=== PATIENT | male | born 1970 | race Caucasian/White ===

== ENCOUNTER 2018-06-01 17:19 | Emergency (ER) | payer SELFPAY ==
[~2018-06-01] VITALS: Ht 193 cm; Wt 104.3 kg
[2018-06-01] MEDS ORDERED: ONDANSETRON HCL 4 MG ORAL DISINTEGRATING TAB PO ONE (18:30)
[2018-06-01] MEDS ORDERED: HYDROCODONE/APAP 10MG-325MG TAB PO ONE (18:30)
== END 2018-06-01 20:14 | disposition home or self-care (01) ==
LOC: ER 17:19
DX: L02.01 Cutaneous abscess of face (principal)
CPT/HCPCS: 99283

== ENCOUNTER 2018-06-03 20:41 | Observation (INO) | payer SELFPAY ==
[~2018-06-03] VITALS: Ht 193 cm; Wt 108.0 kg
[2018-06-03 22:25] LABS: BASOPHILS # (AUTO) 0.1 (0.0-0.1); BASOPHILS % 0.7 % (0.0-1.0); EOSINOPHILS # (AUTO) 0.2 (0.0-0.4); EOSINOPHILS % 2.1 % (0.0-6.0); HEMATOCRIT 50.1 % (38.2-49.6); HEMOGLOBIN 16.7 g/dL (14.0-18.0); LYMPHOCYTES # (AUTO) 1.8 (1.0-3.2); LYMPHOCYTES % 15.3 % (18.0-39.1); MEAN CORPUSCULAR HEMOGLOBIN 29.7 pg (28-32); MEAN CORPUSCULAR HGB CONC 33.3 g/dL (31-35); MEAN CORPUSCULAR VOLUME 89.1 fL (81-99); MONOCYTES # (AUTO) 1.1 (0.2-0.8); MONOCYTES % 9.3 % (4.4-11.3); NEUTROPHILS # (AUTO) 8.3 (2.1-6.9); NEUTROPHILS % 72.1 % (38.7-80.0); PLATELET COUNT 268 x10e3/uL (140-360); RED BLOOD COUNT 5.62 x10e6/uL (4.3-5.7); RED CELL DISTRIBUTION WIDTH 12.4 % (11.7-14.4)
[2018-06-03 22:39] LABS: CREATININE, SERUM 1.39 mg/dL (0.72-1.25)
[2018-06-03] MEDS ORDERED: VANCOMYCIN 1GM/NS 250 ML 250 ML IV SCH (22:45)
[2018-06-03] MEDS ORDERED: IOPAMIDOL 370 MG/ML 200 ML INFUS..BTL INJ ONE (23:01)
[2018-06-03] MEDS ORDERED: SODIUM CHLORIDE 0.9% 50ML 50 ML ONE (23:01)
[2018-06-03] MEDS ORDERED: SODIUM CHLORIDE 0.9% 1000ML 1,000 ML ONE (23:10)
[2018-06-03] MEDS ORDERED: SODIUM CHLORIDE 0.9% 1000ML 1,000 ML IV ONE (23:15)
[2018-06-03] MEDS: ONDANSETRON HCL INJ 2 MG/ML VIAL IV PRN (23:24)
[2018-06-03] MEDS: MORPHINE SULFATE 2 MG/ML SYR IV PRN (23:24)
[2018-06-03] MEDS ORDERED: LIPITOR20 MG PO (23:49)
[2018-06-03] MEDS ORDERED: KEFLEX500 MG PO (23:49)
[2018-06-03] MEDS ORDERED: BACTRIM DS TAB1 EACH PO (23:49)
[2018-06-03] MEDS ORDERED: GLIMEPIRIDE2 MG PO (23:49)
[2018-06-04] VITALS (10 sets, daily range): BP systolic 102–139; BP diastolic 58–87
[2018-06-04] MEDS ORDERED: DEXTROSE 50% SYRINGE 50 ML IV PRN
--- NOTE | 2018-06-04 00:01 | Diagnostic Imaging Report ---
History:Right upper lip swelling for 6 days. Comparison studies: None Technique: Axial images were obtained through the facial region. Coronal and sagittal images reconstructed from the axial data. Intravenous contrast: 100 cc of Isovue 370. Findings: Soft tissues: Moderate right premaxillary and upper lip soft tissue edema with small focal peripheral rim enhancing hypodensity that approximately measures 0.7 x 0.5 x 2 cm in the right paramedian aspect of subcutaneous soft tissues of upper lip. Bones: No fractures or bony abnormalities. Orbits: Globes: Intact. Extra or intraconal abnormalities: None. Paranasal sinuses: Moderate mucosal thickening in left frontal, right maxillary sinus. Mild mucosal thickening in left maxillary and bilateral ethmoid sinuses. IMPRESSION: 1. Moderate right premaxillary and upper lip soft tissue cellulitis, with 0.7 x 0.5 x 2 cm soft tissue abscess. 2. Mild to moderate mucosal inflammatory changes in the paranasal sinuses as detailed above. Signed by: Dr. Zandra Chinchilla M.D. on 06/03/2018 11:58 PM
[2018-06-04] MEDS: VANCOMYCIN 1GM/NS 250 ML 250 ML IV SCH ×2 (00:05→12:00)
[2018-06-04] MEDS: SODIUM CHLORIDE 0.9% 1000ML 1,000 ML IV SCH ×4 (00:33→23:50)
[2018-06-04] MEDS: MORPHINE SULFATE 2 MG/ML SYR IV PRN ×5 (04:15→23:50)
[2018-06-04] MEDS: ONDANSETRON HCL INJ 2 MG/ML VIAL IV PRN ×3 (04:51→23:50)
[2018-06-04] MEDS: INSULIN REGULAR, HUMAN 100 UNIT/1 ML 3ML VIAL SQ SCH ×4 (07:30→20:25)
[2018-06-04] MEDS: PIPER-TAZ 3.375 GM 50 ML IV SCH ×3 (11:48→23:50)
[2018-06-04] MEDS ORDERED: INFLUENZA VIRUS VAC SPLIT INJ 0.5 ML SYR IM ONE (12:45)
--- NOTE | 2018-06-04 14:35 | History and Physical ---
This 48-year-old male has diabetes mellitus. He was admitted to the emergency room with complaint of right upper lip painful swelling and redness. HISTORY OF PRESENT ILLNESS: Mr. Jerrell Katz is a 48-year-old male patient with type-2 diabetes mellitus but noncompliant with his treatment. He was seen as outpatient with right upper lip cellulitis with possible abscess. Outpatient I and D were attempted, but the patient was in severe pain. The patient could not tolerate the procedure. The patient came to the ER. The patient was evaluated in the ER, and the patient was discharged home with oral antibiotics. The patient got worse and did not get any better. He came back, and the patient has been readmitted. In the emergency room, a face CT was done. ALLERGIES: NO KNOWN DRUG ALLERGIES. PAST MEDICAL HISTORY 1. Hep C. 2. Diabetes mellitus. 3. Hypertension. SOCIAL HISTORY: The patient is a smoker. Denies alcohol. REVIEW OF SYSTEMS: As per history of present illness. PHYSICAL EXAMINATION VITAL SIGNS: Temperature 98, pulse rate 60, blood pressure 118/74, respirations 16. HEENT: Right upper lip severe swelling, tenderness and redness. Cervical adenopathy is present. LUNGS: Bilateral equal air entry. No rales. No rhonchi. HEART: S1 and S2, regular. No murmur. No gallop. ABDOMEN: Soft. Bowel sounds are present. NEUROLOGIC: No focal neurological deficit. ADMISSION IMPRESSION AND DIAGNOSES 1. Right facial cellulitis with abscess. 2. Diabetes mellitus. 3. Hypertension. The patient will be admitted with the above diagnoses with abscess of the abscess. Will obtain surgery consult and ID consult. Treat the patient with vancomycin and Zosyn. Will treat with sliding-scale coverage. The patient will get IV analgesics. Job#: [id number]
--- NOTE | 2018-06-04 14:56 | Consultation ---
DATE OF CONSULTATION: June 04, 2018 INFECTIOUS DISEASE CONSULTATION ATTENDING PHYSICIAN: Dr. Donnie Rosenberg. REASON FOR CONSULTATION: Abscess. Thank you, Dr. Rosenberg, for asking me to see this patient. HISTORY: Patient is a 48-year-old man referred for abscess. He was admitted through the emergency department with cellulitis of the upper lip and a single abscess of the face. He presented to the emergency department with progressive right upper lip painful swelling for several days, which worsened after he tried to palpate it. He was evaluated in the emergency department a few days ago and discharged on oral antibiotics. However, he went back to the PCP on the day of admission because his condition deteriorated and was sent back to the emergency department. In the emergency department, he was noted to have a temperature of 98.4 degrees Fahrenheit, pulse 68, respiratory rate 17, blood pressure 122/85 and oxygen saturation 97% on room air. Initial laboratory studies showed blood leukocyte count of 11,480 and blood glucose [address] CT scan of the face showed moderate right premaxillary and upper lip soft-tissue cellulitis and abscess. PAST MEDICAL HISTORY: Diabetes mellitus type 2, hyperlipidemia and pancreatitis. PAST SURGICAL HISTORY: Right inguinal hernia repair. ALLERGIES TO MEDICATION: NO KNOWN DRUG ALLERGIES. MEDICATIONS: The current antibiotics are Zosyn 3.375 grams IV piggyback q.6 hours and vancomycin 1 gram IV piggyback q.12 hours. IMMUNIZATIONS: He has not received influenza vaccine. FAMILY HISTORY: Noncontributory. SOCIAL HISTORY: He smokes 1 to 2 packs of cigarettes a day. Also he smokes a marijuana occasionally. He denies alcohol use. REVIEW OF SYSTEMS: As per history of present illness. He reports improvement and decreased swelling since admission and management. PHYSICAL EXAMINATION: GENERAL: No acute distress. VITAL SIGNS: T-max 98.7, pulse 51, respiratory rate 16, blood pressure 118/74. Weight 229 pounds. HEENT: Normocephalic. There is no icterus or injection of conjunctivae. There is no ear or nasal discharge. There is swelling, induration, erythema and tenderness of the right upper lip. The is no drainage at the moment. Moist oral mucosa. No pharyngeal erythema or exudate. NECK: Supple. No lymphadenopathy or meningismus. LUNGS: Clear to auscultation bilaterally. HEART: Normal S1 and S2. ABDOMEN: Normal bowel sounds in all quadrants. Soft and nontender. EXTREMITIES: There is no edema, clubbing or cyanosis. Dorsalis pedis and posterior tibial pulses are palpable. SKIN: As per HEENT. [employer]: Awake, alert and oriented to person, place and time. There is normal sensation on monofilament examination of the feet. Nonfocal. LABORATORY DATA: WBC 11,480, hemoglobin 16.7, platelet 268,000, neutrophil 72.1, lymph 15.3, mono 9.3, eosinophil 2.1, basophil 0.7. BUN 18, creatinine 1.3, blood glucose 195. Blood culture was collected for yet unknown indication. IMPRESSION: 1. Right upper lip cellulitis and abscess which failed outpatient oral antibiotics. 2. Tobacco use disorder. 3. Diabetes mellitus type 2. PLAN: 1. Check vancomycin trough with the 4th dose. 2. Await surgical consult. 3. Administer influenza vaccination. 4. Smoking cessation counseling was provided to the patient. Job#: [id number] EV
[2018-06-04] MEDS: GLIMEPIRIDE 2 MG TAB PO SCH (17:51)
[2018-06-05] VITALS: BP 147/86
[2018-06-05] MEDS: VANCOMYCIN 1GM/NS 250 ML 250 ML IV SCH ×2 (00:48→12:00)
[2018-06-05 04:00] VITALS: BP 138/92
[2018-06-05 05:01] LABS: BASOPHILS # (AUTO) 0.1 (0.0-0.1); BASOPHILS % 0.7 % (0.0-1.0); EOSINOPHILS # (AUTO) 0.2 (0.0-0.4); EOSINOPHILS % 2.4 % (0.0-6.0); HEMATOCRIT 43.4 % (38.2-49.6); HEMOGLOBIN 14.3 g/dL (14.0-18.0); LYMPHOCYTES # (AUTO) 1.5 (1.0-3.2); LYMPHOCYTES % 15.3 % (18.0-39.1); MEAN CORPUSCULAR HEMOGLOBIN 29.1 pg (28-32); MEAN CORPUSCULAR HGB CONC 32.9 g/dL (31-35); MEAN CORPUSCULAR VOLUME 88.2 fL (81-99); MONOCYTES % 10.1 % (4.4-11.3); NEUTROPHILS % 71.1 % (38.7-80.0); PLATELET COUNT 221 x10e3/uL (140-360); RED BLOOD COUNT 4.92 x10e6/uL (4.3-5.7); RED CELL DISTRIBUTION WIDTH 12.4 % (11.7-14.4)
[2018-06-05] MEDS: PIPER-TAZ 3.375 GM 50 ML IV SCH ×2 (05:30→12:00)
[2018-06-05] MEDS: ONDANSETRON HCL INJ 2 MG/ML VIAL IV PRN (05:31)
[2018-06-05] MEDS: MORPHINE SULFATE 2 MG/ML SYR IV PRN (05:31)
[2018-06-05 05:33] LABS: ALANINE AMINOTRANSFERASE 19 IU/L (0-55); ALBUMIN 3.1 g/dL (3.5-5.0); ALBUMIN/GLOBULIN RATIO 0.9 (0.8-2.0); ALKALINE PHOSPHATASE 97 IU/L (40-150); ANION GAP 13.3 mmol/L (8-16); BLOOD UREA NITROGEN 13 mg/dL (7-26); BUN/CREATININE RATIO 11 (6-25); CALCIUM 9.3 mg/dL (8.4-10.2); CARBON DIOXIDE 23 mmol/L (22-29); CHLORIDE 107 mmol/L (98-107); CREATININE, SERUM 1.14 mg/dL (0.72-1.25); EST GLOMERULAR FILTRATION RATE > 60 ML/MIN (60-); GLUCOSE 98 mg/dL (74-118); POTASSIUM 4.3 mmol/L (3.5-5.1); SODIUM 139 mmol/L (136-145)
[2018-06-05] MEDS: INSULIN REGULAR, HUMAN 100 UNIT/1 ML 3ML VIAL SQ SCH ×2 (07:30→11:30)
[2018-06-05 08:26] VITALS: BP 132/65
[2018-06-05] MEDS: SODIUM CHLORIDE 0.9% 1000ML 1,000 ML IV SCH (08:40)
[2018-06-05] MEDS: GLIMEPIRIDE 2 MG TAB PO SCH (08:40)
[2018-06-05 09:00] VITALS: BP 132/65
[2018-06-05] MEDS ORDERED: ATORVASTATIN 20 MG TAB PO SCH (09:00)
[2018-06-05] MEDS ORDERED: MORPHINE SULFATE INJ 4 MG/ML INJ IV PRN (09:30)
[2018-06-05] MEDS ORDERED: MINOCYCLINE HCL50 MG PO (10:52)
[2018-06-05 11:56] VITALS: BP 118/64
--- NOTE | 2018-06-05 15:00 | Discharge Summary ---
He is a 48-year-old male patient, presented to the emergency room with complaint of right-sided upper lip abscess cellulitis in a diabetic patient. ADMITTING IMPRESSION AND DIAGNOSES 1. Right upper lip cellulitis abscess. 2. Diabetes mellitus. 3. History of recent pancreatitis. HOSPITAL COURSE SUMMARY: Patient was admitted with the above diagnoses. Patient was treated with IV antibiotics, vancomycin and Zosyn. The patient is ID consultation was done. Patient had a blood culture that was negative for any growth. Mid fat decompression of the wound was done and some pus was drained. Now, upon stabilization, patient will be discharged home on minocycline 100 mg twice a day for 10 days and will be followed up as outpatient. Patient was advised to follow up with me as outpatient. RINA STOVER MD Job#: [id number] ZENA
[2018-06-05] MEDS ORDERED: GLIMEPIRIDE 2 MG TAB PO SCH (17:00)
[2018-06-06] MEDS ORDERED: ATORVASTATIN 40 MG TAB PO SCH (09:00)
== END 2018-06-05 12:35 | disposition home or self-care (01) ==
LOC: ER 20:41 → ERHOLD 23:09 → IMCU 06-04 00:07
PROVIDERS: ADMIT Internal Medicine; ATTEND Internal Medicine
DX: K12.2 Cellulitis and abscess of mouth (principal); F17.210 Nicotine dependence, cigarettes, uncomplicated; E11.9 Type 2 diabetes mellitus without complications; Z91.19 Patient's noncompliance with other medical treatment and regimen; Z86.19 Personal history of other infectious and parasitic diseases; I10 Essential (primary) hypertension; E78.5 Hyperlipidemia, unspecified; Z79.4 Long term (current) use of insulin
CPT/HCPCS: 36415 ×3; 70487; 80053 ×2; 82948 ×2; 85025 ×2; 87040; 99284; G0378 ×3; J2270 ×3; J2405 ×3; J2543 ×2; J3370 ×3; J7030 ×3; Q9967

== ENCOUNTER 2020-01-14 15:59 | Inpatient (IN) | payer OTHER ==
[~2020-01-14] VITALS: Ht 193 cm; Wt 106.6 kg
[~2020-01-14 15:59] MED LIST: BACTRIM DS TAB1 EACH PO; GLIMEPIRIDE2 MG PO; KEFLEX500 MG PO; LIPITOR20 MG PO; MINOCYCLINE HCL50 MG PO
--- OUTSIDE RECORDS SUMMARY | 2020-01-14 16:03 | XMS REPORT | Clinical Summary ---
Author Author [facility] Organization [facility] Address Unknown Phone Unavailable Care Team Providers Care Ambulance Assistant Name Role Phone Alfredo Sharpe MD PCP Jackie Stanton MD PCP Allergies No Known Allergies Medications End Date Status Medication Sig Dispensed Refills Start Date Active atorvastatin (LIPITOR) 80 Take 1 tablet 30 tablet 3 mg tabletIndications: by mouth at 8 Hypertriglyceridemia bedtime nightly. Active lancetsIndications: Type Use 2 times 100 Each 1 0 2 diabetes mellitus daily as 8 without complication, directed. without long-term current use of insulin Active pen needle, diabetic Inject under 1 Box 3 04/09 (TRUEPLUS PEN NEEDLE) 31 the skin 5 8 gauge x 3/16" times daily. needlesIndications: Type 2 diabetes mellitus without complication, without long-term current use of insulin 02/05/2020 Active insulin NPH 100 unit/mL Inject 10 30 mL 3 injectionIndications: Units under 9 Type 2 diabetes mellitus the skin 2 without complication, times daily without long-term current (with meals) use of insulin for 360 days Take with breakfast and dinner.. Active gemfibrozil (LOPID) 600 Take 1 tablet 60 tablet 3 mg tabletIndications: by mouth 2 9 Hypertriglyceridemia times daily (before meals). 02/05/2020 Active insulin REGULAR 100 Inject 8 30 mL 3 unit/mL Units under 9 injectionIndications: the skin Type 2 diabetes mellitus before meals without complication, for 360 days. without long-term current use of insulin Active INSULIN SYRINGE 1mL Use to inject 1 Box 3 06201 30GX5/16" (MONOJECT medication 5 9 ULTRACOMFORT INSULIN SYR times daily. 1ML 30GX5/16") Use a new syringe-needleIndications syringe each : Type 2 diabetes time. mellitus without complication, without long-term current use of insulin Active dexlansoprazole Take 1 180 capsule 1 (DEXILANT) 30 mg delayed capsule by 9 release mouth 2 times capsuleIndications: daily (before Gastritis without meals). bleeding, unspecified chronicity, unspecified gastritis type Active lisinopril (ZESTRIL) 2.5 Take 1 tablet 90 tablet 0 mg tabletIndications: by mouth 9 Type 2 diabetes mellitus daily. not at goal 02/10/2019 Discontinued (Therapy comple eliseo) levETIRAcetam (KEPPRA) Take 1 tablet 30 tablet 2 0 500 mg tabletIndications: by mouth 2 4 Headache(784.0) times daily. 02/10/2019 Discontinued (Reorder) atorvastatin (LIPITOR) 80 Take 1 tablet 30 tablet 3 mg tabletIndications: by mouth at 8 Hypertriglyceridemia bedtime nightly. 02/10/2019 Discontinued (Reorder) gemfibrozil (LOPID) 600 Take 1 tablet 60 tablet 3 mg tabletIndications: by mouth 2 8 Hypertriglyceridemia times daily (before meals). 02/10/2019 Discontinued (Reorder) insulin NPH 100 unit/mL Inject 10 3 Month 3 injectionIndications: Units under Supply 8 Type 2 diabetes mellitus the skin 2 without complication, times daily without long-term current (with meals) use of insulin Take with breakfast and dinner.. 02/10/2019 Discontinued (Reorder) insulin REGULAR 100 Inject 8 3 Month 3 unit/mL Units under Supply 8 injectionIndications: the skin Type 2 diabetes mellitus before meals. without complication, without long-term current use of insulin 02/10/2019 Discontinued INSULIN SYRINGE 1mL Use to inject 1 Box 3 04/09 30GX5/16" (MONOJECT medication 5 8 ULTRACOMFORT INSULIN SYR times daily. 1ML 30GX5/16") Use a new syringe-needleIndications syringe each : Type 2 diabetes time. mellitus without complication, without long-term current use of insulin 02/20/2019 Discontinued (Other) atorvastatin (LIPITOR) 80 Take 1 tablet 30 tablet 3 mg tabletIndications: by mouth at 9 Hypertriglyceridemia bedtime nightly. 04/29/2019 Discontinued (Reorder) dexlansoprazole Take 1 90 capsule 0 (DEXILANT) 30 mg delayed capsule by 9 release mouth daily. capsuleIndications: Gastritis without bleeding, unspecified chronicity, unspecified gastritis type 10/26/2019 tropicamide (MYDRIACYL) Instill 1 15 mL 0 0.5 % ophthalmic Drop in each 9 solutionIndications: eye once as Examination of eyes and needed for up vision to 1 dose (for poor retina scan image). Active Problems Problem Noted Date Type 2 diabetes mellitus 05/06/2018 LUQ pain 03/09/2018 Hypertriglyceridemia 03/09/2018 Encounters Care Team Description Date Type Specialty Ivon Sosa Physician 05/04/2019 E-Consult Endocrinology Jackie Stanton MD Hypertriglyceridemia (Primary Dx); Gastritis without bleeding, unspecified chronicity, unspecified gastritis type; Type 2 diabetes mellitus not at goal; Screen for colon cancer; Examination of eyes and vision; Dietary counseling for Above / Below Normal BMI; Exercise counseling for Above Normal BMI Only! 04/29/2019 Office Visit Family Practice 04/19/2019 Ancillary Radiology Procedure Nicolle Fritz MD Neck pain on left side (Primary Dx) 02/24/2019 Emergency Emergency Medicine Gab Carpenter MD Chronic pancreatitis, unspecified pancre atitis type (Primary Dx) 02/20/2019 Orders Only [facility] Gab Carpenter MD Bronchitis, not specified as acute or ch ronic 02/10/2019 Ancillary Radiology Procedure Gab Carpenter MD Dental caries (Primary Dx); Type 2 diabetes mellitus without complication, without long-term current use of insulin; Hypertriglyceridemia; Encounter to establish care; Chronic pancreatitis, unspecified pancreatitis type; Right foot pain; Elevated blood pressure reading without diagnosis of hypertension; Colon cancer screening; Bronchitis, not specified as acute or chronic; Gastritis without bleeding, unspecified chronicity, unspecified gastritis type 02/10/2019 Office Visit Family Practice after 01/13/2019 Immunizations Name Administration Dates Next Due Influenza Vaccine 09/17/2010 PNEUMOCOCCAL 23-VALPS 05/06/2018 (Deferred: Patie nt Refused) VACCINE 25 MCG/0.5 ML INJECTION Family History Medical History Relation Name Comments Diabetes Father Heart Maternal Grandmother Relation Name Status Comments Father Other Maternal Grandmother Alive Mother Alive Social History Date Tobacco Use Types Packs/Day Years Used Current Every Day Smoker Cigarettes 1 35 Smokeless Tobacco: Never Used Drinks/Week oz/Week Comments Alcohol Use 0 Cans of beer 0.0 Not Currently Food Insecurity Answer Date Recorded Within the past 12 months, you worried that your Never casey e 11/04/2018 food would run out before you got money to buy more. Within the past 12 months, the food you bought Never true 11/04/2018 just didn't last and you didn't have mo raina to get more. Sex Assigned at Date Recorded Not on file Industry Job Start Date Occupation Not on file Not on file Not on file Travel End Travel History Travel Start No recent travel history available. Last Filed Vital Signs Reading Time Taken Comments Vital Sign 137/86 04/29/2019 8:14 AM CDT Blood Pressure 63 04/29/2019 8:14 AM CDT Pulse 37 C (98.6 F) 04/29/2019 8:14 AM CDT Temperature 18 04/29/2019 8:14 AM CDT Respiratory Rate 96% 02/24/2019 11:11 AM CDT Oxygen Saturation - - Inhaled Oxygen Concentration 104.7 kg (230 lb 12.8 oz) 04/29/2019 8:14 AM CDT Weight 189.5 cm (6' 2.61") 04/29/2019 8:14 AM CDT Height 29.15 04/29/2019 8:14 AM CDT Body Mass Index Plan of Treatment Health Maintenance Due Date Last Done Comments DM Retinal Exam (Yearly) 1986 Colorectal Cancer Scrn 2018 Annual (FIT/FOBT) Age 50 to 75 DM Foot Exam (Yearly) 02/11/2020 02/10/2019 DM HGBA1C (Yearly) 02/11/2020 02/10/2019, 018, 05/05/2018 IMM Influenza Seasonal 06/08/2020Jun to November (>/= 19 yrs) Goals Goal Patient Associated Recent Progress Patient-Stat Aut hor Goal Type Problems ed? Eat Healthy Lifestyle No Antonino Aguilar LVN Increase Physical Activity Lifestyle No Antonino Kulkarni LVN Take medications as prescribed Self No Jackie Stanton management MD Home Glucose Monitoring Self No Jackie Stanton management MD Exercise Regularly Self No Jackie Stanton management MD Procedures Comments Procedure Name Priority Date/Time Associated Diag nosis HEMOCCULT KIT FOR Routine 04/29/2019 Screen for c olon cancer SPECIMEN COLLECTION AT 8:[address] ABDOMEN AND PELVIS Routine 04/19/2019 Chronic pancreatitis, CONTRAST 2:52 PM CDT unspecified pancrea titis type CREATININE Routine 04/15/2019 Chronic pancrea titis, 11:14 AM CDT unspecified pancreatitis type GLUCOSE POC Routine 02/24/2019 11:15 AM CDT XRAY CHEST 2 VIEWS Routine 02/10/2019 Bronchitis, not specified 3:10 PM CDT as acute or chronic XRAY FOOT 3 VIEWS MIN Routine 02/10/2019 Right fo ot pain 3:10 PM CDT LIPASE Routine 02/10/2019 Chronic pancrea titis, 3:01 PM CDT unspecified pancreatitis type AMYLASE Routine 02/10/2019 Chronic pancrea titis, 3:01 PM CDT unspecified pancreatitis type CBC Routine 02/10/2019 Hypertriglyceri demia 3:01 PM CDT Encounter to establish care Chronic pancreatitis, unspecified pancreatitis type SYPHILIS SCREEN FOR Routine 02/10/2019 Encounter to establish INFECTION 3:01 PM CDT care HEPATITIS PANEL Routine 02/10/2019 Encounter to e stablish 3:01 PM CDT care LIPID PROFILE Routine 02/10/2019 Hypertriglyceri demia 3:01 PM CDT Encounter to establish care CBC/DIFF Routine 02/10/2019 Hypertriglyceri demia 3:01 PM CDT Encounter to establish care Chronic pancreatitis, unspecified pancreatitis type THYROID STIMULATING Routine 02/10/2019 Encounter to establish HORMONE (TSH) 3:01 PM CDT care COMPREHENSIVE METABOLIC Routine 02/10/2019 Type 2 diabetes mellitus PANEL 3:01 PM CDT without complicatio n, without long-term current use of insulin Hypertriglyceridemia Encounter to establish care Elevated blood pressure reading without diagnosis of hypertension MICROALBUMIN / CREATININE Routine 02/10/2019 Type 2 diabetes mellitus URINE RATIO 3:00 PM CDT without complicatio n, without long-term current use of insulin HIV-1/HIV-2 ROUTINE Routine 02/10/2019 Encounter to establish SCREENING 3:00 PM CDT care HEMOGLOBIN A1C Routine 02/10/2019 Type 2 diabetes mellitus 2:59 PM CDT without complication, without long-term current use of insulin DIABETIC FOOT EXAM Routine 02/10/2019 Type 2 diab etes mellitus 1:47 PM CDT without complication, without long-term current use of insulin after 01/13/2019 Results * CT ABDOMEN AND PELVIS CONTRAST (04/19/2019 2:52 PM CDT) Specimen Impressions Performed At IMPRESSION: SMS No acute inflammatory process in the ab domen/pelvis. Dictated By: Bacilio España MD, 04/08 3:50 PM I have reviewed the study and agree wit h the findings in this report. Signed By: Neil Castillo MD, 04/19/2019 4:21 PM Narrative Performed At EXAM: CT Abdomen and Pelvis WITH contrast SMS INDICATION: Abd pain, acute, generalize d COMPARISON: Abdominal ultrasound 018, CT dated 09/11/2010 TECHNIQUE: Abdomen and pelvis were scan alejandro utilizing a multidetector helical scanner from the lung base to t he pubic symphysis after administration of IV contrast. Coronal and sagittal reformations were obtained. Routine protocol was performe d. Scan was performed when during portal venous phase. IV CONTRAST: 150 mL of Omnipaque 300 ORAL CONTRAST: None. COMPLICATIONS: None RADIATION DOSE: Total DLP: 886.50 mGy*cm Estimated effective dose: (DLP x 0.015 x size factor) mSv CTDIvol has been reviewed. It is below the limits set by the Radiation Protocol Committee (RPC). FINDINGS: LINES and TUBES: None. LOWER THORAX: Unremarkable HEPATOBILIARY: Mild hepatomegaly measur ing approximately 17 cm in craniocaudal dimension. Stable hypodens e well-circumscribed lesion (series 2, image 18) centered in hepati c segment I measuring approximately 6 mm in diameter too smal l to characterize, likely a cyst. No hepatic mass. No biliary ductal dila tion. GALLBLADDER: No radio-opaque stones or sludge. No wall thickening. SPLEEN: No splenomegaly. PANCREAS: No focal masses or ductal dil atation. ADRENALS: No adrenal nodules KIDNEYS/URETERS: Kidneys enhance symmet rically. No hydronephrosis. No cystic or solid mass lesions. Focal lef t midpole cortical thinning/scarring. No stones. GI TRACT: No abnormal distention, wall thickening, or evidence of bowel obstruction. Appendix is normal. PELVIC ORGANS/BLADDER: Bladder is unrem arkable. Scattered prostatic calcifications. LYMPH NODES: No lymphadenopathy. VESSELS: Mild aortoiliac atheroscleroti c disease. PERITONEUM / RETROPERITONEUM: No free a ir or fluid. BONES: L5-S1 degenerative changes. Stab le scattered subcentimeter sclerotic foci since 2010, representing bone islands, for example in right iliac on series 2, image 70. SOFT TISSUES: Unremarkable.. Procedure Note Interface, Rad/Mammog In - 04/19/2019 4:26 PM CDT EXAM: CT Abdomen and Pelvis WITH contrast INDICATION: Abd pain, acute, generalized COMPARISON: Abdominal ultrasound 05/06/2018, CT dated 09/11/2010 TECHNIQUE: Abdomen and pelvis were scanned utilizing a multidetector helical scanner from the lung base to the pubic symphysis after administration of IV contrast. Coronal and sagittal reformations were obtained. Routine protocol was performed. Scan was performed when during portal venous phase. IV CONTRAST: 150 mL of Omnipaque 300 ORAL CONTRAST: None. COMPLICATIONS: None RADIATION DOSE: Total DLP: 886.50 mGy*cm Estimated effective dose: (DLP x 0.015 x size factor) mSv CTDIvol has been reviewed. It is below the limits set by the Radiation Protocol Committee (RPC). FINDINGS: LINES and TUBES: None. LOWER THORAX: Unremarkable HEPATOBILIARY: Mild hepatomegaly measuring approximately 17 cm in craniocaudal dimension. Stable hypodense well-circumscribed lesion (series 2, image 18) centered in hepatic segment I measuring approximately 6 mm in diameter too small to characterize, likely a cyst. No hepatic mass. No biliary ductal dilation. GALLBLADDER: No radio-opaque stones or sludge. No wall thickening. SPLEEN: No splenomegaly. PANCREAS: No focal masses or ductal dilatation. ADRENALS: No adrenal nodules KIDNEYS/URETERS: Kidneys enhance symmetrically. No hydronephrosis. No cystic or solid mass lesions. Focal left midpole cortical thinning/scarring. No stones. GI TRACT: No abnormal distention, wall thickening, or evidence of bowel obstruction. Appendix is normal. PELVIC ORGANS/BLADDER: Bladder is unremarkable. Scattered prostatic calcifications. LYMPH NODES: No lymphadenopathy. VESSELS: Mild aortoiliac atherosclerotic disease. PERITONEUM / RETROPERITONEUM: No free air or fluid. BONES: L5-S1 degenerative changes. Stable scattered subcentimeter sclerotic foci since 2010, representing bone islands, for example in right iliac on series 2, image 70. SOFT TISSUES: Unremarkable.. IMPRESSION IMPRESSION: No acute inflammatory process in the abdomen/pelvis. Dictated By: Bacilio España MD, 04/19/2019 3:50 PM I have reviewed the study and agree with the findings in this report. Signed By: Neil Castillo MD, 04/19/2019 4:21 PM Performing Organization Address [facility] one Number [facility] * Creatinine (04/15/2019 11:14 AM CDT) Creatinine 1.1 0.7 - 1.3 mg/dL [facility] GFR, Estimated 71 (L) >=90 mL/min/1.73 m2 [facility] Specimen Blood Performing Organization Address [facility] one Number [facility] [address] [place] [address] [phone] * POCT GLUCOSE POC docked device (02/24/2019 11:15 AM CDT) Glucose POC 241 (H) 74 - 106 mg/dL [facility] Specimen Blood Performing Organization Address [facility] one Number [facility] [address] [place] [address] * XRAY CHEST 2 VIEWS (02/10/2019 3:10 PM CDT) Specimen Impressions Performed At IMPRESSION: [facility] No acute thoracic abnormality. Dictated By: Allyssa Whitt DO, 9 3:44 PM I have reviewed the study and agree wit h the findings in this report. Signed By: Mir Gracia MD, 02/11/2019 9 :20 AM Narrative Performed At EXAMINATION: XRAY CHEST 2 VIEWS SMS INDICATION: COPD and previously abnorma l CXR COMPARISON: Chest X-ray, 05/05/18 FINDINGS: TUBES and LINES: None. LUNGS: Lungs are well inflated. Gilmar gs are clear. There is no evidence of pneumonia or pulmonary indy a. PLEURA: No pleural effusion or pneumo thorax. HEART AND MEDIASTINUM: The cardiomedi astinal silhouette is unremarkable. BONES AND SOFT TISSUES: No acute osse ous lesion. Soft tissues are unremarkable. UPPER ABDOMEN: No free air under the di aphragm. Procedure Note [facility] Rad/Mammog In - 02/11/2019 9:25 AM CDT EXAMINATION: XRAY CHEST 2 VIEWS INDICATION: COPD and previously abnormal CXR COMPARISON: Chest X-ray, 05/05/18 FINDINGS: TUBES and LINES: None. LUNGS: Lungs are well inflated. Lungs are clear. There is no evidence of pneumonia or pulmonary edema. PLEURA: No pleural effusion or pneumothorax. HEART AND MEDIASTINUM: The cardiomediastinal silhouette is unremarkable. BONES AND SOFT TISSUES: No acute osseous lesion. Soft tissues are unremarkable. UPPER ABDOMEN: No free air under the diaphragm. IMPRESSION IMPRESSION: No acute thoracic abnormality. Dictated By: Allyssa Whitt DO, 02/10/2019 3:44 PM I have reviewed the study and agree with the findings in this report. Signed By: Mir Gracia MD, 02/11/2019 9:20 AM Performing Organization Address City/State/Zipcode Ph one Number SMS * XRAY FOOT 3 VIEWS MIN (02/10/2019 3:10 PM CDT) Specimen Impressions Performed At IMPRESSION: [facility] No acute radiographic abnormality. Dictated By: Mike Rendon MD, 02/10 3:06 PM I have reviewed the study and agree wit h the findings in this report. Signed By: Artemio Vicente MD, 02/10/2019 3:18 PM Narrative Performed At EXAM: Right foot radiograph, 3 views SMS HISTORY: right foot pain COMPARISON: None DISCUSSION: No acute displaced fracture. The joint spaces are well-maintained. Dorsal calcaneal spurring. Procedure Note [facility] Rad/Mammog In - 02/10/2019 3:23 PM CDT EXAM: Right foot radiograph, 3 views HISTORY: right foot pain COMPARISON: None DISCUSSION: No acute displaced fracture. The joint spaces are well-maintained. Dorsal calcaneal spurring. IMPRESSION IMPRESSION: No acute radiographic abnormality. Dictated By: Mike Rendon MD, 02/10/2019 3:06 PM I have reviewed the study and agree with the findings in this report. Signed By: Artemio Vicente MD, 02/10/2019 3:18 PM Performing Organization Address City/State/Zipcode Ph one Number SMS * CBC/Diff (02/10/2019 3:01 PM CDT) WBC 10.9 4.5 - 12.0 K/uL [facility] RBC 5.85 4.60 - 6.20 M/uL [facility] Hemoglobin 17.2 14.0 - 18.0 g/dL [facility] Hematocrit 52.9 40.0 - 54.0 % [facility] MCV 90.4 82.0 - 92.0 fL [facility] MCH 29.4 27.0 - 31.0 pg [facility] MCHC 32.5 32.0 - 36.0 g/dL [facility] RDW 43.6 35.1 - 43.9 fL [facility] Platelet 245 150 - 400 K/uL [facility] Mean Platelet 11.0 9.4 - 12.4 fL [facility] Volume [facility] Percent NRBC 0.0 % [facility] Neutrophil 70.3 (H) 34.0 - 67.9 % [facility] Lymphs 17.2 (L) 21.8 - 50.0 % [facility] Monocytes 9.3 5.3 - 12.0 % [facility] Eos 1.7 0.8 - 5.0 % [facility] Basos 0.7 0.2 - 1.2 % [facility] Immature 0.8 (H) 0.0 - 0.5 % [facility] Granulocytes [facility] Neutrophils 7.66 (H) 1.78 - 5.36 K/uL [facility] (Absolute) [facility] Lymphs 1.88 1.32 - 3.57 K/uL [facility] (Absolute) [facility] Monocytes(Absol 1.01 (H) 0.30 - 0.82 K/uL [facility] missy) LAB[facility] Eos (Absolute) 0.19 0.04 - 0.54 K/uL [facility] Baso (Absolute) 0.08 0.01 - 0.08 K/uL [facility] Immature Grans 0.09 (H) 0.00 - 0.03 K/uL [facility] (Abs) [facility] Absolute NRBC 0.00 K/uL [facility] Specimen Blood Performing Organization Address [facility] Ph one Number [facility] [address] [place] [address] * Syphilis Screen for Infection (02/10/2019 3:01 PM CDT) Pathologist [facility] TPA Negative Negative [facility] Final Report Negative Negative [facility] Specimen Blood Narrative Performed At Should be ordered in patients where their syphilis st atus is unknown and you [facility] want to test if the patient has Syphili s. If the test is positive, the lab will automatically reflex test for RPR (Non- treponemal test) titer, and if the RPR is negative, the lab will automatically test for TP-PA ( Treponemal Test) Performing Organization Address [facility] Ph one Number [facility] [address] [place] [address] [phone] * Comprehensive Metabolic Panel (02/10/2019 3:01 PM CDT) Pathologist [facility] Sodium 134 (L) 136 - 145 mmol/L [facility] Potassium 4.5 3.5 - 5.1 mmol/L [facility] Chloride 97 (L) 98 - 107 mmol/L [facility] CO2 26 21 - 31 mmol/L [facility] Glucose 322 (H) 70 - 110 mg/dL [facility] Calcium 10.2 8.6 - 10.3 mg/dL [facility] Urea Nitrogen 13.0 7.0 - 25.0 mg/dL [facility] Creatinine 0.9 0.7 - 1.3 mg/dL [facility] Alkaline 115 (H) 34 - 104 U/L [facility] Phosphatase [facility] ALT 19 7 - 52 U/L [facility] AST 16 13 - 39 U/L [facility] Bilirubin, 0.4 0.2 - 1.2 mg/dL [facility] Total [facility] Total Protein 7.0 6.0 - 8.3 g/dL [facility] GFR, Estimated >60 mL/min/1.73 m2 [facility] Albumin 4.5 4.2 - 5.5 g/dL [facility] Anion Gap 11 5 - 16 mmol/L [facility] Specimen Blood Performing Organization Address [facility] one Number [facility] [address] [place] [address] [phone] * TSH (02/10/2019 3:01 PM CDT) TSH 2.79 0.57 - 3.74 uIU/mL [facility] Specimen Blood Performing Organization Address [facility] one Number [facility] [address] [place] [address] * Lipid Profile (02/10/2019 3:01 PM CDT) Triglyceride 1,489 (H) <150 mg/dL [facility] Comment: [facility] Normal: < 150.0 mg/dL Borderline: 150-199 mg/dL High: 200-499 mg/dL Very High: >= 500 mg/dL Cholesterol 260.0 (H) <=200.0 mg/dL [facility] Comment: [facility] Desirable: < 200.0 mg/dL Borderline: 200 - 240 mg/dL High Risk: > 240 mg/dL HDL 31.0 See Reference Range [facility] Comment: Narrative. mg/dL LAB[facility]ATORY Increased CHD Risk: < 40.0 mg/dL Decreased CHD Risk: > 60 mg/dL LDL -69 <100 mg/dL [facility] Comment: [facility] Optimal: < 100.0 mg/dL Near Optimal: 120-129 mg/dL Borderline: 130-159 mg/dL High: 160-189 mg/dL Very High: >=190 mg/dL Specimen Blood Narrative Performed At Patient is not fasting. For a triglyceride result gre ater than 440 mg/dL, [facility] consider re-testing when the patient is in a fasting state. Performing Organization Address [facility] one Number [facility] [address] [place] [address] [phone] * Lipase (02/10/2019 3:01 PM CDT) Lipase 134 (H) 11 - 82 U/L [facility] Specimen Blood Performing Organization Address [facility] one Number [facility] [address] [place] [address] * Hepatitis Panel (02/10/2019 3:01 PM CDT) Hep C Vir Ab Negative Negative [facility] LABORATORY Hep B Surface Negative Negative [facility] Ag LABORATORY Hep A Vir Ab Negative Negative [facility] IgM LABORATORY Hep B Core Ab Negative Negative [facility] IgM [facility]OR[facility] Specimen Blood Performing Organization Address [facility] one Number [facility] [address] [place] [address] [phone] * Amylase (02/10/2019 3:01 PM CDT) Pathologist [facility] Amylase 47 29 - 103 U/L [facility] Specimen Blood Performing Organization Address [facility] one Number [facility] [address] [place] [address] [phone] * HIV-1/HIV-2 Routine Screening (02/10/2019 3:00 PM CDT) Pathologist [facility] HIV-1/HIV-2 Negative Negative [facility] Specimen Blood Performing Organization Address [facility] one Number [facility] [address] [place] [address] * Microalb/Crea Ratio,Ur (02/10/2019 3:00 PM CDT) [facility] Microalbumin, 2.6 <30.0 mg/dL [facility] Random LABORATORY Creatinine, 82 20 - 370 mg/dL [facility] Urine LABORATORY Urine 31.7 (H) 0.0 - 30.0 mg/g [facility] Microalbumin LABORATORY Specimen Urine - Voided, urine Performing Organization Address [facility] one Number [facility] [address] [place] [address] * Hemoglobin A1C (02/10/2019 2:59 PM CDT) Pathologist [facility] Hemoglobin A1c 10.3 (H) 4.3 - 6.1 % [facility] Estimated 249 (H) 70 - 110 mg/dL [facility] Average Glucose LABORATORY Specimen Blood Performing Organization Address City/State/Zipcode Ph one Number [facility] [address] [place] [address] [phone] * DIABETIC FOOT EXAM (02/10/2019 1:47 PM CDT) Narrative Performed At Gab Carpenter MD 02/10/2019 6:11 PM Diabetic Foot Exam was performed at 02/10 6:06 PM. Right foot sensation is normal, right foot pulses are normal, right foot appearance is abnormal (thickened toenail and ra sh to foot). Left foot sensation is normal, left foot pulses are normal, left foot appearance is abnormal (thickened toenail and rash to foot). after 01/13/2019 Advance Directives Date Inactivated Comments Code Status Date Activated 09/17/2010 6:10 PM Full Code 09/17/2010 2:25 AM 09/17/2010 2:25 AM Full Code 09/14/2010 11:11 PM
[2020-01-14 16:25] VITALS: BP 120/87
[2020-01-14] MEDS ORDERED: HYDROMORPHONE 1MG/1ML INJ IV PRN (17:00)
[2020-01-14] MEDS ORDERED: DEXTROSE 50% SYRINGE 50 ML IV PRN (17:30)
[2020-01-14 17:32] VITALS: BP 120/87
[2020-01-14] MEDS ORDERED: LEVOFLOXACIN 500MG/D5W 100ML 100 ML IV SCH (18:00)
[2020-01-14 18:03] VITALS: BP 120/87
[2020-01-14] MEDS ORDERED: SODIUM CHLORIDE 0.9% 250ML 250 ML ONE (18:03)
[2020-01-14] MEDS: ONDANSETRON HCL INJ 2MG/ML 2ML 2 MG/ML VIAL IV PRN (18:07)
[2020-01-14 18:46] LABS: BASOPHILS # (AUTO) 0.1 (0.0-0.1); BASOPHILS % 0.4 % (0.0-1.0); EOSINOPHILS # (AUTO) 0.1 (0.0-0.4); EOSINOPHILS % 0.5 % (0.0-6.0); HEMATOCRIT 46.1 % (38.2-49.6); HEMOGLOBIN 15.8 g/dL (14.0-18.0); LYMPHOCYTES # (AUTO) 1.9 (1.0-3.2); LYMPHOCYTES % 13.9 % (18.0-39.1); MEAN CORPUSCULAR HEMOGLOBIN 29.4 pg (28-32); MEAN CORPUSCULAR HGB CONC 34.3 g/dL (31-35); MEAN CORPUSCULAR VOLUME 85.8 fL (81-99); MONOCYTES # (AUTO) 1.1 (0.2-0.8); MONOCYTES % 7.9 % (4.4-11.3); NEUTROPHILS # (AUTO) 10.2 (2.1-6.9); NEUTROPHILS % 76.7 % (38.7-80.0); PLATELET COUNT 221 x10e3/uL (140-360); RED BLOOD COUNT 5.37 x10e6/uL (4.3-5.7); RED CELL DISTRIBUTION WIDTH 12.8 % (11.7-14.4)
[2020-01-14 19:03] LABS: ALANINE AMINOTRANSFERASE 19 IU/L (0-55); ALBUMIN 3.9 g/dL (3.5-5.0); ALBUMIN/GLOBULIN RATIO 1.3 (0.8-2.0); ALKALINE PHOSPHATASE 88 IU/L (40-150); ANION GAP 13.6 mmol/L (8-16); BLOOD UREA NITROGEN 16 mg/dL (7-26); BUN/CREATININE RATIO 16 (6-25); CARBON DIOXIDE 22 mmol/L (22-29); CHLORIDE 107 mmol/L (98-107); CREATININE, SERUM 1.01 mg/dL (0.72-1.25); EST GLOMERULAR FILTRATION RATE > 60 ML/MIN (60-); GLUCOSE 142 mg/dL (74-118); POTASSIUM 4.6 mmol/L (3.5-5.1); SODIUM 138 mmol/L (136-145)
[2020-01-14 19:04] LABS: AMYLASE 106 U/L (25-125); CHOL/HDL RATIO 5.5 (3.9-4.7); CHOLESTEROL 194 MD/DL (0-199); HDL CHOLESTEROL 35 MG/DL (40-60); TRIGLYCERIDES 430 MG/DL (0-149)
[2020-01-14 19:26] LABS: THYROID STIMULATING HORMONE 0.679 uIU/mL (0.350-4.940)
--- NOTE | 2020-01-14 19:30 | NUR ---
received report from day nurse. patient is resting comfortably in the bed. bed is in the lowest position and call light is within reach. will continue to monitor patient.
[2020-01-14 20:02] VITALS: BP 118/83
[2020-01-14] MEDS ORDERED: IOPAMIDOL 370 MG/ML 200 ML INFUS..BTL INJ ONE ×2 (20:13→20:48)
[2020-01-14] MEDS ORDERED: SODIUM CHLORIDE 0.9% 50ML 0 ML ONE (20:14)
[2020-01-14] MEDS ORDERED: SODIUM CHLORIDE 0.9% 50ML 50 ML ONE (20:48)
--- NOTE | 2020-01-14 20:58 | Diagnostic Imaging Report ---
EXAMINATION: CHEST SINGLE (NOT PORTABLE) COMPARISON: None INDICATION: Recurrent pancreatitis, upper abdominal pain ^20200114 ^2029 DISCUSSION: Frontal view of the chest obtained at 3 hours. HEART AND MEDIASTINUM: The cardiomediastinal silhouette is unremarkable. LINES: None. LUNGS/PLEURA: The lungs are diffusely hyperinflated ingested of COPD.. No pneumonia or pulmonary edema. No pleural effusion or pneumothorax. BONES AND SOFT TISSUES: No focal osseous lesion. The soft tissues are normal. IMPRESSION: Pulmonary hyperinflation suggestive of COPD. No acute cardiopulmonary process. Signed by: Dr. Carlos Rendon MD on 01/14/2020 8:54 PM
[2020-01-14] MEDS: INSULIN LISPRO 100 UNIT/1 ML 3ML VIAL SQ SCH (21:00)
--- NOTE | 2020-01-14 21:00 | Diagnostic Imaging Report ---
Two view abdomen series. CPT 48502 CLINICAL HISTORY: Upper abdominal pain TECHNIQUE: Flat and upright views of the abdomen obtained. COMPARISON: CT abdomen/pelvis 2034 hours. Medical Devices: None Bowel: Unremarkable bowel gas pattern. No dilated bowel loops or air-fluid levels. No pneumatosis. No significant burden of stool in the large bowel. Calcifications: None Organomegaly: None Free air: None Lung bases: Clear Other: Excreted contrast in the kidneys, ureters, and bladder from CT. No hydronephrosis. No evidence of cortical mass. Bones: Sclerotic lesion in the right ilium measures 18 mm and corresponds to a bone island. Mild degenerative changes of the hips. IMPRESSION: Unremarkable bowel gas pattern. Signed by: Dr. Carlos Rendon MD on 01/14/2020 8:57 PM
--- NOTE | 2020-01-14 21:00 | Diagnostic Imaging Report ---
CT Abdomen And Pelvis with Intravenous Contrast INDICATION: ^abdominal pain, recurrent pancreatitis ^20200114 ^2029 TECHNIQUE: Thin collimation axial images obtained from the diaphragm to the level of the pubic symphysis following the uneventful administration of 100 cc of low osmolar, nonionic intravenous contrast. Dose reduction techniques used: Automated exposure control, adjustment of the mAs and/or kVp according to patient size, standardized low-dose protocol, and/or iterative reconstruction technique. RADIATION DOSE: Total DLP: 785.3 mGy*cm Estimated effective dose: (DLP x 0.015 x size factor) mSv CTDIvol has been reviewed. It is below the limits set by the Radiation Protocol Committee (RPC). COMPARISON: None. ABDOMEN FINDINGS: Lung Bases: Posterior subpleural groundglass opacities in the lower lobe suggestive of subsegmental atelectasis. Visualized portion of the mediastinum is normal. Liver: Mildly decreased in attenuation suggestive of steatosis. However, the timing of the contrast bolus is suboptimal. No evidence for mass. Gallbladder: Present and appears normal. No biliary ductal dilatation. Pancreas: Uniform enhancement. No mass or ductal dilatation. No peripancreatic inflammation. Spleen: Normal in size. No evidence of mass.. Adrenal Glands: No evidence for mass. Kidneys: Right: Normal enhancement. No soft tissue mass. No hydronephrosis. Left: Normal enhancement. No soft tissue mass. No hydronephrosis. Lymph Nodes: No enlarged abdominal or periaortic lymph nodes. Aorta: Normal in diameter with scattered atherosclerotic calcifications and plaque. The visceral arteries are normal in morphology. PELVIS FINDINGS: Bowel: Stomach: Normal. Small Bowel: Normal in caliber with normal wall thickness. Large Bowel: Normal in caliber with normal wall thickness. Appendix: Normal. Bladder: Normal. The prostate gland is mildly enlarged with several calcifications in the central zone. Seminal vesicles are normal Peritoneum/retroperitoneum: No free fluid, fluid collection, or free air. Bones: Mild degenerative changes of the lower lumbar spine, L5-S1. Sclerotic lesions in the right ilium, femoral heads, and pelvis suggestive of bone islands. Mild degenerative changes of the hips. Soft tissues: Small amount of fat along the spermatic cords. Small fat-containing umbilical hernia. IMPRESSION: 1. No evidence for bowel obstruction or inflammation. Normal appendix. 2. No CT findings of acute pancreatitis or the sequela of pancreatitis. 3. Atherosclerosis. 4. Suspected steatosis. Recommend correlation with liver function tests. Signed by: Dr. Carlos Rendon MD on 01/14/2020 8:57 PM
[2020-01-14] MEDS ORDERED: DOCUSATE SODIUM 100 MG CAP PO PRN (21:15)
[2020-01-14] MEDS ORDERED: HYDRALAZINE HCL 20 MG/ML VIAL IV PRN (21:15)
[2020-01-14] MEDS ORDERED: ACETAMINOPHEN 325 MG TAB PO PRN (21:15)
[2020-01-14] MEDS ORDERED: MELATONIN 5 MG TABLET PO PRN (21:15)
[2020-01-14] MEDS ORDERED: LIDOCAINE 4% PATCH TP SCH (21:45)
[2020-01-14] MEDS: PANTOPRAZOLE 40 MG 10ML VIAL IV SCH (22:12)
[2020-01-14] MEDS: SODIUM CHLORIDE 0.9% 1000ML 1,000 ML IV SCH (22:12)
[2020-01-14] MEDS: HYDROMORPHONE 1MG/1ML INJ IV PRN (22:15)
[2020-01-14 22:25] VITALS: BP 118/83
[2020-01-14] MEDS ORDERED: FENOFIBRATE 145 MG TAB PO STA (22:43)
[2020-01-14 23:55] VITALS: BP 124/85
--- NOTE | 2020-01-15 00:19 | History and Physical ---
CHIEF COMPLAINT: Abdominal pain. HISTORY OF PRESENT ILLNESS: This is a 49-year-old male reports with history of pancreatitis. He was diagnosed at [facility] about a year ago, has no other issues. He states that he takes glimepiride for diabetes and Lipitor for underlying type 2 for hyperlipidemia. He presented as a direct admission from Dr. Rosenberg's office due to the abdominal pain more described on the left upper quadrant. The patient reports about a year ago, he was diagnosed with alcoholic pancreatitis at [facility] and it is kind a bounced back and forth through many hospitals due to insurance issues. He now has insurance and was told to come into the ED for further evaluation and management. He reports previous imaging studies what he was told that he had acute pancreatitis. Our CT scan findings shows no evidence of acute pancreatitis. The patient reports some nausea vomiting, but he was able to tolerate food according to him. He reports having some dehydration and decreased oral intake. The patient was seen and evaluated at bedside on the medical floor. He is currently doing well with no other issues at this time. The nurse was present throughout the entire conversation. Vital signs were stable during my evaluation. REVIEW OF SYSTEMS: Pertinent positives: Right upper quadrant abdominal pain, nausea, vomiting, and decreased oral intake. The rest of 14-point review of systems have been reviewed with the patient and are negative. ALLERGIES: NO KNOWN DRUG ALLERGIES. HOME MEDICATIONS: Lipitor, cephalexin, glimepiride, minocycline, and Bactrim. PAST MEDICAL HISTORY: Reports history of acute pancreatitis in the past, type 2 diabetes, and hyperlipidemia. PAST SURGICAL HISTORY: Reports none. FAMILY HISTORY: Hypertension and diabetes. SOCIAL HISTORY: No drugs. He is an occasional drinker. Occasional smoker. Has evidence of COPD on imaging studies. PHYSICAL EXAMINATION: VITAL SIGNS: Temperature was 97.7, pulse is 70, respiratory rate is 18, blood pressure 118/83, pulse ox 94% on room air. GENERAL: Not in acute distress. Alert and oriented x3. Cooperative on examination. PULMONARY: Clear to auscultation bilaterally. No wheezing, rales, or rhonchi. No crackles appreciated. CARDIOVASCULAR: Positive S1, S2. No murmurs, rubs, or gallops appreciated. ABDOMEN: He was tender to palpation in the left upper quadrant, more so on the 12th rib of the left side. But there was no rebound. No guarding. Bowel sounds were present. MUSCULOSKELETAL: Strength is 5/5 throughout. NEUROLOGIC: No evidence of any neurologic deficits on exam. SKIN: Intact. Warm to touch. Good cap refill. PSYCHIATRIC: Normal affect and mood. EXTREMITIES: No edema. Good range of motion throughout. LABORATORY DATA: Labs show white count of 13.3, hemoglobin 15.8, hematocrit is 46, platelets of 221. Chemistry; sodium 138, potassium 4.6, chloride 107, bicarb 22, anion gap of 13, BUN 16, creatinine is 1.01. A1c is 8.2, calcium is 10. LFTs within normal range. Alkaline phosphatase 88, total protein 7, AST 18, ALT 19, total bilirubin 0.6, albumin 3.9, triglycerides 430. LDL was elevated [id number]-count. Amylase level 106. TSH 0.679. Coronavirus PCR pending. Microbiology, none. IMAGING STUDIES: Chest x-ray shows pulmonary hyperinflation suggestive of chronic obstructive pulmonary disease. No acute cardiopulmonary process. Abdominal x-ray shows nonspecific bowel gas pattern, but they also comment on a sclerotic lesion in the right ileum, measures 18 mm that corresponds to a bone island. I did consult Hematology in relation to this. It does show an unremarkable bowel gas pattern. No dilated loops of bowel or air-fluid levels. No pneumatosis. There is no evidence of any constipation. CT abdomen and pelvis shows, no evidence of bowel obstruction inflammation. Normal appendix. No acute pancreatitis or evidence of any pancreatitis. Suspected steatosis. IMPRESSION: 1. Left upper quadrant abdominal pain, unknown etiology, likely to be musculoskeletal in nature according to the presentation. Nausea, vomiting, decreased oral intake, likely secondary to: a. Sclerotic lesion seen on the ileum on imaging studies. 2. Type 2 diabetes. 3. Hyperlipidemia. PLAN: At this time, the etiology for his abdominal pain is unknown. His imaging studies are purely negative. It seems that the patient likely has some musculoskeletal etiology due to his pain. This is no evidence of acute pancreatitis based on imaging and labs. I will go ahead and send him a GI consultation. He is on pain control p.r.n. He will be on telemetry and we will put a lidocaine patch on the left upper abdomen. I will go ahead and get a rib x-ray as well, a chest CTA to rule out PE in the event if this was a pleuritic pain, despite this has been ongoing for several months now. He is on Protonix twice daily. Put him on insulin sliding scale for his underlying diabetes. He will be on Lovenox for DVT prophylaxis. Encourage ambulation. He is on a diabetic diet. In relation to a sclerotic lesion seen on the ileum, I did consult with Hematology/Oncology. The etiology is unknown at this time. Discussed plan of care with nursing staff and the patient. I interviewed the patient at bedside with the nurse present throughout the entire conversation and he verbalized understanding and agrees to plan of care. MD ALEXSANDRA Seals/MODL /[id number]
[2020-01-15 04:05] VITALS: BP 132/95
[2020-01-15] MEDS: HYDROMORPHONE 1MG/1ML INJ IV PRN ×2 (04:54→10:01)
[2020-01-15] MEDS: ONDANSETRON HCL INJ 2MG/ML 2ML 2 MG/ML VIAL IV PRN ×2 (04:54→10:01)
[2020-01-15 06:20] LABS: BASOPHILS # (AUTO) 0.1 (0.0-0.1); BASOPHILS % 0.7 % (0.0-1.0); EOSINOPHILS # (AUTO) 0.3 (0.0-0.4); HEMATOCRIT 44.1 % (38.2-49.6); HEMOGLOBIN 14.7 g/dL (14.0-18.0); LYMPHOCYTES # (AUTO) 1.7 (1.0-3.2); LYMPHOCYTES % 20.4 % (18.0-39.1); MEAN CORPUSCULAR HEMOGLOBIN 29.1 pg (28-32); MEAN CORPUSCULAR HGB CONC 33.3 g/dL (31-35); MEAN CORPUSCULAR VOLUME 87.2 fL (81-99); MONOCYTES # (AUTO) 0.9 (0.2-0.8); MONOCYTES % 10.7 % (4.4-11.3); NEUTROPHILS # (AUTO) 5.4 (2.1-6.9); NEUTROPHILS % 64.3 % (38.7-80.0); PLATELET COUNT 201 x10e3/uL (140-360); RED BLOOD COUNT 5.06 x10e6/uL (4.3-5.7); RED CELL DISTRIBUTION WIDTH 13.2 % (11.7-14.4)
[2020-01-15 06:34] LABS: ANION GAP 11.1 mmol/L (8-16); BLOOD UREA NITROGEN 15 mg/dL (7-26); BUN/CREATININE RATIO 14 (6-25); CALCIUM 9.2 mg/dL (8.4-10.2); CARBON DIOXIDE 22 mmol/L (22-29); CHLORIDE 107 mmol/L (98-107); CREATININE, SERUM 1.09 mg/dL (0.72-1.25); EST GLOMERULAR FILTRATION RATE > 60 ML/MIN (60-); GLUCOSE 148 mg/dL (74-118); POTASSIUM 4.1 mmol/L (3.5-5.1); SODIUM 136 mmol/L (136-145)
--- NOTE | 2020-01-15 06:38 | NUR ---
patient is resting comfortably in the bed. bed is in the lowest position and call light is within reach.
[2020-01-15 07:12] LABS: AMYLASE 70 U/L (25-125); LIPASE 79 U/L (8-78)
[2020-01-15 08:15] VITALS: BP 116/80
[2020-01-15] MEDS ORDERED: FENOFIBRATE 145 MG TAB PO SCH (09:00)
[2020-01-15 09:30] VITALS: BP 116/80
[2020-01-15] MEDS: SODIUM CHLORIDE 0.9% 1000ML 1,000 ML IV SCH (10:00)
[2020-01-15] MEDS: PANTOPRAZOLE 40 MG 10ML VIAL IV SCH (10:09)
[2020-01-15] MEDS: INSULIN LISPRO 100 UNIT/1 ML 3ML VIAL SQ SCH (10:18)
[2020-01-15] MEDS ORDERED: ENOXAPARIN SOD INJ 40 MG/0.4 ML SYR SC SCH (17:00)
--- NOTE | 2020-01-15 22:29 | Discharge Summary ---
FINAL DISCHARGE DIAGNOSES: 1. The patient left against medical advice. 2. Left upper quadrant abdominal pain, presumed to be from mild pancreatitis. 3. Sclerotic lesion seen on the ilium on imaging studies, needing further workup. 4. Type 2 diabetes. 5. Hyperlipidemia. CONSULTANTS: Hematology/Oncology and GI. PHYSICAL EXAMINATION: VITAL SIGNS: Temperature is 96.7, pulse 56, respiratory rate 20, blood pressure 116/80, pulse ox 98% on room air. LABORATORY DATA: Labs show white count of 8.4, hemoglobin 14.7, hematocrit is 44, platelets of 201. Chemistry; sodium 136, potassium 4.1, chloride 107, bicarb 22, anion gap of 11, BUN is 15, creatinine is 1.09. A1c is 8.2. Troponin 0.017. His triglycerides 430, LDL is unable to measure, very elevated lipase level of 209. TSH 0.679. Several serologies UPEP and SPEP were all pending. Serology, coronavirus PCR was pending. Microbiology, none. IMAGING STUDIES: Chest x-ray, pulmonary hyperinflation suggestive of chronic obstructive pulmonary disease. Abdominal x-ray unremarkable. CT of abdomen and pelvis showed evidence of a sclerotic lesions in the right ilium, femoral head and pelvis suggestive of bone islands. Mild degenerative changes of the hips. No evidence of bowel obstruction or inflammatory changes. No normal appendix. No CT findings of acute pancreatitis or sequela of pancreatitis. Suspected steatosis. HOSPITAL COURSE: A 49-year-old male, came in as a direct admission from the PCP's office due to a left upper quadrant abdominal pain ongoing for the last several weeks. The patient was admitted for presumed underlying acute pancreatitis. Lipase levels were slightly elevated, and GI was consulted and felt the patient's likely mild pancreatitis could be from elevated triglyceride levels. The patient had several tests performed including chest x-ray was negative. Abdominal x-ray was negative. CT of abdomen and pelvis showed no evidence of acute pancreatitis, but did comment on some sclerotic lesions in the right in the ilium and femoral head and pelvis, needing prompting further evaluation and management. Hematology/Oncology was consulted and several serologies were ordered. There were several more imaging studies still pending, but the patient decided to leave against medical advice. I spoke with the patient on 01/15/2020, with the nurse present and he did not want to stay longer in the hospital, instead he signed a medical advice paperwork left in the chart and left AMA. MEDICATIONS: Left against medical advice. DISPOSITION: Left AMA. I tried to convince the patient to stay longer for further workup and management, but he was adamant about leaving against medical advice, in which he signed and left documentation in the chart. MD ALEXSANDRA Seals/MODMelany /[id number]
== END 2020-01-15 13:45 | disposition left against medical advice (07) | DRG 440 ==
LOC: MED/SURG2 15:59
PROVIDERS: ADMIT Internal Medicine; ATTEND Internal Medicine
DX: K85.90 Acute pancreatitis without necrosis or infection, unspecified (principal); E11.9 Type 2 diabetes mellitus without complications; E78.5 Hyperlipidemia, unspecified; Z79.4 Long term (current) use of insulin; M89.9 Disorder of bone, unspecified
CPT/HCPCS: 36415; 71045; 74019; 74177; 80048; 80053; 80061; 82105; 82150; 82378; 82784; 82785; 82948; 83036; 83690; 84165; 84443; 84484; 85025; 86301; 87635; 93005; J1170; J1650; J1956; J2405; J7030; J7050; Q9967

== ENCOUNTER → 2020-03-01 | Day surgery (SDC) | payer OTHER ==
[~2020-03-01] MED LIST changes: +ETOMIDATE 2 MG/ML 10 ML INJ IV ONE; +FENTANYL CITRATE/PF 100MCG/2 ML INJ ONE; +GLYCOPYRROLATE INJ 0.2 MG/ML VIAL ONE; +KETAMINE HCL INJ 50 MG/ML 10 ML VIAL ONE; +LIDOCAINE HCL 2% LOCAL INJ 5 ML SDV VIAL INJ ONE; +LISINOPRIL10 MG PO; +METFORMIN HCL850 MG PO; +METOCLOPRAMIDE HCL 10 MG/2ML VIAL ONE; +MIDAZOLAM HCL 2 MG/2 ML VIAL ONE; +PANTOPRAZOLE 40 MG 10ML VIAL ONE; +PROPOFOL IV EMULSION 10 MG/ML 20 ML VIAL ONE
[2020-03-01 16:35] VITALS: BP 151/87
--- NOTE | 2020-05-01 02:44 | Operative Report ---
DATE OF PROCEDURE: 05/01/2020 SURGEON: Josh Kaiser MD PROCEDURE: EGD with biopsies and colonoscopy with polypectomy and biopsies. REFERRING PHYSICIAN: Dr. Lisa Rosenberg. INDICATIONS FOR EGD: Acid reflux, nausea, and vomiting. INDICATIONS FOR COLONOSCOPY: Colorectal cancer screening, left-sided abdominal pain. MEDICATIONS: The patient was done under MAC. Please see anesthesiologist's note. PROCEDURE IN DETAIL: With the patient in left lateral decubitus position, a flexible fiberoptic Olympus gastroscope was inserted into the esophagus under direct visualization without any difficulty. There was a minute nodule cervical esophagus, it was partially excised with the cold biopsy forceps. The mucosa overlying the distal esophagus revealed some patchy areas of erythema. The scope was then advanced with ease into the stomach and the mucosa overlying the antrum and the body revealed some patchy erythema and low-grade to moderate edema, biopsies were obtained and sent to stain for H pylori. Pyloric channel stricture, now was dilated to size 20 mm per TTS balloon dilators. The scope was then advanced with ease all the way to the second portion of the duodenum. Biopsies were obtained from the proximal second portion and the duodenal bulb to rule out sprue. The scope was then withdrawn back into the stomach and retroflexed mucosa overlying the fundus and cardia appeared to be within normal limits. The scope was then straightened out, it was subsequently withdrawn and the patient tolerated the procedure well. IMPRESSION: 1. Rule out squamous papilloma cervical esophagus. 2. Distal esophagitis, mild. 3. Gastritis, biopsied, biopsies sent to stain for H pylori. 4. Pyloric channel stricture dilated to size 20 mm per TTS balloon dilators. 5. Rule out sprue. PLAN: Follow up histology. Initiate Protonix 40 mg one p.o. q.a.m. a.c. The patient was then turned around and after adequate lubrication of the anal canal, a flexible fiberoptic Olympus colonoscope was inserted into the rectum with ease and advanced all the way to the cecum. Mucosa overlying the cecum appeared to be within normal limits. The scope was then withdrawn slowly and two polyps were hot snared and one site was hemoclipped x2 and two polyps were cold biopsied from the ascending colon. Two polyps in the descending colon, one was hot snared and one was cold biopsied. There were some patchy mild inflammatory changes noted in the left colon, multiple random biopsies were obtained. A #5 sigmoid colon polyps x5, 2 hot snared and 3 hot biopsied. A #6 rectal polyps x2, hot biopsied. The scope was then retroflexed into the distal rectum and small internal hemorrhoids were noted none of which was actively bleeding. The scope was then straightened out, it was subsequently withdrawn and the patient tolerated the procedure well. IMPRESSION: 1. Ascending colon polyps x4, 2 hot snared 1 site hemoclipped x2, 2 cold, biopsied. 2. Transverse colon polyps x2, 1 cold biopsies and 1 hot snared. 3. Descending colon polyps x21 hot snared and 1 cold biopsied. 4. Mild patchy left-sided colitis. 5. Sigmoid colon polyps x5, 2 hot snared and 3 hot biopsied. 6. Rectal polyps x2, hot biopsied. 7. Internal hemorrhoids, none actively bleeding. A total of 15 polyps were removed. PLAN: Initiate high-fiber low-fat diet. Initiate high-fiber supplement. Start VSL #3 one p.o. b.i.d. The patient might benefit from a followup colonoscopy in one year. Thank you very much. MD LADAN Crook/JOSÉ MIGUEL /[id number]
== END | disposition home or self-care (01) ==
LOC: OR 12:42
PROVIDERS: ATTEND Internal Medicine Gastroenterology
DX: K29.70 Gastritis, unspecified, without bleeding (principal); D12.2 Benign neoplasm of ascending colon; D12.3 Benign neoplasm of transverse colon; D12.4 Benign neoplasm of descending colon; D12.5 Benign neoplasm of sigmoid colon; D12.8 Benign neoplasm of rectum; K31.1 Adult hypertrophic pyloric stenosis; K51.50 Left sided colitis without complications; K21.9 Gastro-esophageal reflux disease without esophagitis; K20.9 Esophagitis, unspecified; K64.8 Other hemorrhoids; E11.9 Type 2 diabetes mellitus without complications; I10 Essential (primary) hypertension; F17.210 Nicotine dependence, cigarettes, uncomplicated; Z01.812 Encounter for preprocedural laboratory examination; Z11.59 Encounter for screening for other viral diseases; Z79.84 Long term (current) use of oral hypoglycemic drugs; Z68.28 Body mass index [BMI] 28.0-28.9, adult
CPT/HCPCS: 43239; 43245; 45380; 45384; 45385; 87635; C9113; J2001; J2250; J2704; J2765; J3010; 43233; U0002

== ENCOUNTER 2021-09-24 22:41 | Emergency (ER) | payer SELFPAY ==
[~2021-09-24] VITALS: Ht 193 cm; Wt 106.6 kg
[~2021-09-24 22:41] MED LIST changes: -ETOMIDATE 2 MG/ML 10 ML INJ IV ONE; -FENTANYL CITRATE/PF 100MCG/2 ML INJ ONE; -GLYCOPYRROLATE INJ 0.2 MG/ML VIAL ONE; -KETAMINE HCL INJ 50 MG/ML 10 ML VIAL ONE; -LIDOCAINE HCL 2% LOCAL INJ 5 ML SDV VIAL INJ ONE; -METOCLOPRAMIDE HCL 10 MG/2ML VIAL ONE; -MIDAZOLAM HCL 2 MG/2 ML VIAL ONE; -PANTOPRAZOLE 40 MG 10ML VIAL ONE; -PROPOFOL IV EMULSION 10 MG/ML 20 ML VIAL ONE
[2021-09-24] MEDS ORDERED: ONDANSETRON HCL INJ 2MG/ML 2ML 2 MG/ML VIAL IV STA ×2 (22:51)
[2021-09-24] MEDS ORDERED: Morphine 4mg Syringe 4 MG/ML INJ IV ONE ×2 (23:00)
[2021-09-24] MEDS ORDERED: Morphine 4mg Syringe 4 MG/ML INJ ONE (23:07)
[2021-09-24] MEDS ORDERED: ONDANSETRON HCL INJ 2MG/ML 2ML 2 MG/ML VIAL ONE (23:07)
== END 2021-09-25 00:16 | disposition home or self-care (01) ==
LOC: ER 22:48
DX: K40.90 Unilateral inguinal hernia, without obstruction or gangrene, not specified as recurrent (principal); I10 Essential (primary) hypertension; E11.9 Type 2 diabetes mellitus without complications
CPT/HCPCS: 99283; J2270 ×2; J2405